=== PATIENT | male | born 1960 | race Caucasian/White ===

== ENCOUNTER → 2016-12-16 | Outpatient (CLI) | payer OTHER ==
[~2016-12-16] MED LIST: None per pt; OMNIPAQUE 350 MG/ML, 150 ML BOTTLE ONE
== END | disposition home or self-care (01) ==
LOC: CFH 12:48
PROVIDERS: ATTEND Internal Medicine Cardiovascular Disease
DX: Z01.811 Encounter for preprocedural respiratory examination (principal); I48.1 Persistent atrial fibrillation; I42.9 Cardiomyopathy, unspecified; R91.8 Other nonspecific abnormal finding of lung field
CPT/HCPCS: 71020; 75572; Q9967

== ENCOUNTER 2018-07-05 06:13 | Day surgery (SDC) | payer OTHER ==
[~2018-07-05] VITALS: Ht 188 cm; Wt 108.5 kg
[~2018-07-05 06:13] MED LIST changes: +AMIO200T42 PO; +APIX5TAB PO; +HYDR-3240 PO; -OMNIPAQUE 350 MG/ML, 150 ML BOTTLE ONE
[2018-07-05 06:43] VITALS: BP 117/80
[2018-07-05] MEDS ORDERED: BUPIVACAINE/PF-EPI 0.5% 1:200K ONE (06:55)
[2018-07-05] MEDS ORDERED: LACTATED RINGERS 1,000 ML IV SCH (07:07)
[2018-07-05] MEDS ORDERED: MIDAZOLAM 1 MG/ML, 2ML ONE (07:26)
[2018-07-05] MEDS ORDERED: FENTANYL PF 250 MCG/5ML ONE ×2 (07:26→08:47)
[2018-07-05] MEDS ORDERED: ACETAMINOPHEN 500 MG TABLET PO ONE (07:30)
[2018-07-05] MEDS ORDERED: GABAPENTIN 300 MG CAPSULE PO ONE (07:30)
[2018-07-05] MEDS ORDERED: PHENYLEPHRINE 10 MG/ML ONE (07:49)
[2018-07-05] MEDS ORDERED: CEFOTETAN PMX 2GM/50ML 50 ML ONE (07:58)
[2018-07-05] MEDS ORDERED: LABETALOL 5MG/ML, 20ML IV PRN (08:00)
[2018-07-05] MEDS ORDERED: HYDROmorphone 2 MG/ML, 1ML IVPush PRN (08:00)
[2018-07-05] MEDS ORDERED: MORPHINE SULFATE 4 MG/ML, 1ML IVPush PRN (08:00)
[2018-07-05] MEDS ORDERED: ONDANSETRON ODT 8 MG PO PRN (08:00)
[2018-07-05] MEDS ORDERED: OXYcodone 5 MG/5 ML ORAL.SOL UDC PO PRN (08:00)
[2018-07-05] MEDS ORDERED: PROMETHAZINE 25 MG SUPP PR PRN (08:00)
[2018-07-05] MEDS ORDERED: PROMETHAZINE 12.5 MG SUPP PR PRN (08:00)
[2018-07-05] MEDS ORDERED: FENTANYL PF 100 MCG/2ML IV PRN (08:00)
[2018-07-05] MEDS ORDERED: ONDANSETRON 2MG/ML, 2ML IV PRN (08:00)
[2018-07-05] MEDS ORDERED: MEPERIDINE/PF 25MG/0.5ML IVPush PRN (08:00)
[2018-07-05] MEDS ORDERED: hydrALAzine 20 MG/ML, 1ML IV PRN (08:00)
[2018-07-05] MEDS ORDERED: PROMETHAZINE 25 MG/ML, 1ML IM PRN ×2 (08:00)
[2018-07-05] MEDS ORDERED: PROMETHAZINE 25 MG/ML, 1ML IV PRN (08:00)
[2018-07-05] MEDS ORDERED: INDOCYANINE GREEN 25 MG VIAL ONE (08:17)
[2018-07-05] MEDS ORDERED: ROCURONIUM 10MG/ML,5ML ONE (08:47)
[2018-07-05] MEDS ORDERED: GLYCOPYRROLATE 0.2MG/1ML, 5ML ONE (08:47)
[2018-07-05] MEDS ORDERED: NEOSTIGMINE 1 MG/ML, 10ML ONE (08:47)
[2018-07-05] MEDS ORDERED: PROPOFOL 10 MG/ML, 20ML ONE (08:47)
[2018-07-05] MEDS ORDERED: METHOCARBAMOL 1,000 MG in DEXTROSE 5% 100 ML IV ONE (13:00)
[2018-07-05] MEDS ORDERED: ONDANSETRON 2MG/ML, 2ML IVPush PRN (15:00)
== END 2018-07-05 16:45 | disposition home or self-care (01) ==
LOC: OUT 06:13
PROVIDERS: ATTEND Surgery
DX: K80.10 Calculus of gallbladder with chronic cholecystitis without obstruction (principal); K42.9 Umbilical hernia without obstruction or gangrene; I48.91 Unspecified atrial fibrillation; Z79.899 Other long term (current) drug therapy; Z98.890 Other specified postprocedural states
CPT/HCPCS: 47562; 49652; 88304; C1781; J2250; J2370; J2704; J2710; J2800; J3010; J3490; J7120; S2900

== ENCOUNTER 2019-11-21 10:47 | Emergency (ER) | payer OTHER ==
[~2019-11-21] VITALS: Ht 188 cm; Wt 99.5 kg
--- NOTE | 2019-11-21 11:13 | NUR ---
UNWITNESSED SYNCOPE PER [facility] WHILE DROPPING DOG OFF AT [facility] WITH NAUSEA, LIGHTHEADEDNESS PRECEDING EVENT. PT DENIED CP OR SOB PRIOR TO SYNCOPE. PT HAS LAC ABOVE RIGHT EYEBROW. PT DENIES HEAD OR NECK PAIN. PT ALSO REPORTS INTERMIITENT FEVERS OVER LAST FEW DAYS WITH NAUSEA AND BODY ACHES. PT DENIES VOMITING OR DIARRHEA. PT ON MONITOR. EKG BEING DONE. CHART UP FOR .
[2019-11-21 11:28] LABS: BASOPHILS # (AUTO) 0.02 x10^3/uL (0-0.1); BASOPHILS % (AUTO) 0 % (0-1); EOSINOPHILS % (AUTO) 0 % (1-7); LYMPHOCYTES # (AUTO) 0.84 x10^3/uL (1-3.4); LYMPHOCYTES % (AUTO) 17 % (22-44); MD NO; MEAN CORPUSCULAR HEMOGLOBIN 30.6 pg (27.5-34.5); MEAN CORPUSCULAR HGB CONC 33.5 g/dL (33.2-36.2); MEAN CORPUSCULAR VOLUME 91.3 fL (81-97); MEAN PLATELET VOLUME 9.2 fL (7.4-10.4); MONOCYTES # (AUTO) 0.71 x10^3/uL (0.2-0.8); MONOCYTES % (AUTO) 15 % (2-9); NEUTROPHILS # (AUTO) 3.28 x10^3/uL (1.8-6.8); NEUTROPHILS % (AUTO) 68 % (42-75); PLATELET COUNT 165 x10^3/uL (130-400); RED BLOOD COUNT 5.04 x10^6/uL (4.38-5.82); RED CELL DISTRIBUTION WIDTH 12.7 % (9.4-14.8)
[2019-11-21] MEDS ORDERED: SODIUM CHLORIDE 0.9% 1,000ML IVBOLUS ONE (11:30)
[2019-11-21 11:39] LABS: ALANINE AMINOTRANSFERASE 25 U/L (12-78); ALBUMIN 4.2 g/dL (3.4-5.0); ANION GAP 7 mmol/L (5-15); CALCIUM 8.7 mg/dL (8.5-10.1); CHLORIDE 106 mmol/L (98-107); CREATININE 1.21 mg/dL (0.7-1.3)
[2019-11-21 11:41] LABS: ALKALINE PHOSPHATASE 35 U/L (45-117); BILIRUBIN,TOTAL 0.4 mg/dL (0.2-1.0); TOTAL PROTEIN 7.5 g/dL (6.4-8.2)
[2019-11-21] MEDS ORDERED: SODIUM CHLORIDE FLUSH 10ML SYR IVF ONE (12:00)
[2019-11-21 13:57] VITALS: BP 107/72
== END 2019-11-21 13:59 | disposition home or self-care (01) ==
LOC: ED 11:12
DX: U07.1 COVID-19 (principal); R55 Syncope and collapse; R51 Headache
CPT/HCPCS: 36415; 80053; 85025; 87635; 93005; 96360; 99284; J7030